=== PATIENT | male | born 1980 | race Caucasian/White ===

== ENCOUNTER 2018-01-04 11:16 | Outpatient (CLI) | payer BC ==
--- NOTE | 2018-01-04 13:13 | CT ---
CT OF ABDOMEN AND PELVIS PERFORMED WITHOUT CONTRAST ENHANCEMENT: HISTORY: Hematuria and fever. History of renal stones. FINDINGS: The lung bases are clear. The liver, spleen, and pancreas regions appear unremarkable. Gallbladder is slightly contracted. Right and left adrenal glands are normal in size. There are 2 punctate upper pole nonobstructing rig ht renal calculi. No definitive left-sided calculus, although there may be a faint lower pole calcul us present as seen on the coronal view. The ureters are not dilated and no ureteral calculi are seen . No significant periaortic or mesenteric adenopathy. There are some small left periaortic nodes sl ightly more numerous than typically seen but nonspecific given their small size. No bowel wall findi ngs. CT OF PELVIS PERFORMED WITHOUT CONTRAST ENHANCEMENT: The bladder is mildly distended. The prostate does not appear enlarged. Appendix is normal. IMPRESSION: Two punctate nonobstructing upper pole right renal calculi with a questionable tiny punctate nonobstr ucting left renal calculus. POS: [facility]
== END 2018-01-04 11:17 | disposition home or self-care (01) ==
LOC: CT 11:16
PROVIDERS: ATTEND Family Medicine
DX: R31.9 Hematuria, unspecified (principal); N20.0 Calculus of kidney
CPT/HCPCS: 74176

== ENCOUNTER 2021-12-22 07:38 | Outpatient (CLI) | payer BC | END 2021-12-22 07:39 | disposition home or self-care (01) | LOC: BICCT 07:38 | PROVIDERS: ATTEND Family Medicine | DX: R10.9 Unspecified abdominal pain (principal); N20.2 Calculus of kidney with calculus of ureter; N13.4 Hydroureter; K63.9 Disease of intestine, unspecified; R31.29 Other microscopic hematuria | CPT/HCPCS: 74176; 81001; 87086 ==

== ENCOUNTER 2022-04-13 08:22 | Emergency (ER) | payer BC ==
[2022-04-13 08:56] LABS: #Lymphocytes 1.9 thou/uL (1.20-3.40); #Monocytes 0.5 thou/uL (0.11-0.59); #Neutrophils 3.8 thou/uL (1.40-6.50); %Basophils 0.2 % (0.0-1.0); %Eosinophils 0.7 % (0.0-10.0); %Lymphocytes 30.9 % (21.0-51.0); %Monocytes 8.2 % (0.0-10.0); Hemoglobin 14.7 g/dL (14.0-18.0); Mean Corpuscular HGB CONC 35.5 g/dL (32.0-36.0); Mean Corpuscular Hemoglobin 31.2 pg (27.0-31.0); Mean Corpuscular Volume 87.8 fl (78.0-98.0); Mean Platelet Volume 6.1 fL (7.4-10.4); Platelet Count 236 10x3/uL (130-400); RBC Distribution Width 11.3 % (11.5-14.5); Red Blood Cell (RBC) Count 4.72 mill/uL (4.70-6.10); White Blood Cell (WBC) Count 6.3 10x3/uL (4.8-10.8)
[2022-04-13 09:23] LABS: ALT (SGPT) 115 U/L (8-55); AST (SGOT) 51 U/L (5-34); Albumin 4.4 g/dL (3.5-5.0); Alkaline Phosphatase 63 U/L (40-110); Anion Gap 11 mmol/L (10-20); BUN (Urea Nitrogen) 14 mg/dL (8.9-20.6); Bilirubin, Total 0.7 mg/dL (0.2-1.2); Calc. Creatinine Clearance 0 mL/min (70-130); Calcium 9.1 mg/dL (7.8-10.44); Carbon Dioxide 25 mmol/L (22-29); Chloride 106 mmol/L (98-107); Estimated GFR 102; Globulin 2.5 g/dL (2.4-3.5); Glucose 109 mg/dL (70-105); Potassium 4.1 mmol/L (3.5-5.1); Protein, Total 6.9 g/dL (6.0-8.3); Sodium 138 mmol/L (136-145)
[2022-04-13 11:07] LABS: Bacteria/HPF None Seen HPF (None Seen); Bilirubin Negative (Negative); Blood, Urine 3+ (Negative); Clarity Clear (Clear); Glucose, Urine (Dipstick) Normal (Negative); Ketone, Urine Negative (Negative); Leukocyte Negative Leu/uL (Negative); Nitrite Negative (Negative); Protein, Urine (Dipstick) Negative (Neg-Trace); RBC/HPF Greater than 50 HPF (0-3); Specific Gravity, Urine 1.013 (1.002-1.036); Squamous Epithelial None Seen HPF (0-3); Urobilinogen Normal mg/dL (Less than 2); WBC/HPF 0-3 HPF (0-3); pH, Urine 6.5 (5.0-9.0)
[2022-04-13] MEDS ORDERED: Ketorolac Tromethamine 30 MG/ML VIAL ONE (11:38)
== END 2022-04-13 12:40 | disposition home or self-care (01) ==
LOC: ERS 08:22
DX: N20.0 Calculus of kidney (principal); F17.220 Nicotine dependence, chewing tobacco, uncomplicated
CPT/HCPCS: 36415; 74176; 80053; 81003; 81015; 83605; 85025; 87086; 96374; J1885

== ENCOUNTER 2024-05-08 09:34 | Emergency (ER) | payer OTHER ==
[2024-05-08 10:23] LABS: Bacteria/HPF None Seen HPF (None Seen); Bilirubin Negative (Negative); Blood, Urine Trace (Negative); CAUTI Indications for Culture Dysuria,urgency,freq; Clarity Clear (Clear); Glucose, Urine (Dipstick) Normal (Negative); Ketone, Urine Negative (Negative); Leukocyte Negative Leu/uL (Negative); Nitrite Negative (Negative); Protein, Urine (Dipstick) Negative (Neg-Trace); RBC/HPF 0-3 HPF (0-3); Specific Gravity, Urine 1.004 (1.002-1.036); Squamous Epithelial None Seen HPF (0-3); Urobilinogen Normal mg/dL (Less than 2); WBC/HPF None Seen HPF (0-3)
[2024-05-08 10:37] LABS: Urine Culture Reflex No No
[2024-05-08 11:31] LABS: #Basophils Less than 0.03 10x3/uL (0.0-0.2); #Eosinophils Less than 0.03 10x3/uL (0.0-0.7); %Basophils 0.4 % (0.0-1.0); %Eosinophils 0.4 % (0.0-10.0); %Lymphocytes 23.9 % (21.0-51.0); %Monocytes 8.8 % (0.0-10.0); %Neutrophils 66.1 % (42.0-75.0); Hematocrit 42.7 % (42.0-52.0); Hemoglobin 15.6 g/dL (14.0-18.0); Mean Corpuscular HGB CONC 36.5 g/dL (32.0-36.0); Mean Corpuscular Hemoglobin 30.4 pg (27.0-31.0); Mean Corpuscular Volume 83.1 fL (78.0-98.0); Mean Platelet Volume 8.4 fL (7.4-10.4); Platelet Count 223 10x3/uL (130-400); RBC Distribution Width 11.4 % (11.5-14.5); Red Blood Cell (RBC) Count 5.14 mill/uL (4.70-6.10)
[2024-05-08 11:46] LABS: ALT (SGPT) 123 U/L (8-55); AST (SGOT) 58 U/L (5-34); Albumin 4.5 g/dL (3.5-5.0); Alkaline Phosphatase 59 U/L (40-110); Anion Gap 14 mmol/L (10-20); BUN (Urea Nitrogen) 11 mg/dL (8.9-20.6); Bilirubin, Total 0.7 mg/dL (0.2-1.2); Calc. Creatinine Clearance 0 mL/min (70-130); Calcium 9.7 mg/dL (7.8-10.44); Carbon Dioxide 23 mmol/L (22-29); Chloride 106 mmol/L (98-107); Estimated GFR 114; Globulin 3.2 g/dL (2.4-3.5); Glucose 113 mg/dL (70-105); Potassium 4.4 mmol/L (3.5-5.1); Protein, Total 7.7 g/dL (6.0-8.3); Sodium 139 mmol/L (136-145)
[2024-05-08 11:59] LABS: Troponin I 0.013 ng/mL (< 0.028)
== END 2024-05-08 12:29 | disposition home or self-care (01) ==
LOC: ERS 09:34
DX: R07.89 Other chest pain (principal); F41.0 Panic disorder [episodic paroxysmal anxiety]; R91.1 Solitary pulmonary nodule; F17.220 Nicotine dependence, chewing tobacco, uncomplicated
CPT/HCPCS: 36415; 71045; 80053; 81001; 84484; 85025; 93005